=== PATIENT | female | born 1985 | race Caucasian/White ===

== ENCOUNTER 2018-10-20 15:15 | Emergency (ER) | payer BC, OTHER ==
[~2018-10-20] VITALS: Ht 160 cm; Wt 100.0 kg
[~2018-10-20 15:15] MED LIST: NAPR-985 PO
[2018-10-20 15:19] VITALS: BP 114/74; PULSE 101; RESP 24; Ht 160 cm; Wt 100.0 kg
[2018-10-20] MEDS ORDERED: ACETAMINOPHEN 500 MG TAB PO STA (15:58)
--- NOTE | 2018-10-20 17:11 | ERD ---
ER Documentation Chief Complaint Chief Complaint pt reports L ankle pain HPI 32-year-old female presents ED complaining of twisted left ankle. He states that she was jumping on trampoline where she landed funny and twisted her ankle. She reports 8 out of 10 pain that is located at her ankle. She has taken 2 Advil's prior to the emergency department visit. She denies any previous injury to the foot or ankle pain she denies any radiation of the pain. She denies any past medical history. ROS All systems reviewed and are negative except as per history of present illness. Medications Home Meds Active Scripts Naproxen* (Naprosyn*) 500 Mg Tablet, 500 MG PO BID, #30 TAB Prov:SMITH FERREIRA PA-C 10/20/18 Allergies Allergies: Coded Allergies: No Known Allergy (Unverified , 10/20/18) PMhx/Soc Medical and Surgical Hx: pt denies Medical Hx, pt denies Surgical Hx Hx Alcohol Use: No Hx Substance Use: No FmHx Family History: No diabetes Physical Exam Vitals Vital Signs Date Temp Pulse Resp B/P (MAP) Pulse Ox O2 O2 Flow FiO2 Time Delivery Rate 10/20/18 98.6 101 24 114/74 100 15:19 (87) Physical Exam Const: No acute distress Head: Atraumatic Resp: Clear to auscultation bilaterally Cardio: Regular rate and rhythm, Abd: Soft, non tender, non distended. Ext: Left ankle: swollen, tenderness at the ankle joint. 2+ pulses, good sensation, ROM limmited secondary to pain Neur: Awake and alert Psych: Normal Mood and Affect Results 24 hrs Current Medications Medications Dose Sig/Mariah Start Time Status Last (Trade) Ordered Route PRN Stop Time Admin Dose Reason Admin 1,000 mg ONCE STAT 10/20/18 DC 10/20/18 Acetaminophen PO 15:58 16:04 (Tylenol 10/20/18 16:00 Tab) Procedures/MDM ED COURSE: The patient was stable throughout ED course. I kept the patient informed of laboratory and diagnostic imaging results throughout the ED course. DIAGNOSTIC IMAGING: Read by radiologist. PROCEDURE: XR Left Ankle. CLINICAL INDICATION: Ankle trauma with pain. Fall. TECHNIQUE: AP, oblique and lateral views of the left ankle were performed. 3 images COMPARISON: None. FINDINGS: Fractures: None. Joint spaces: Maintained. Lytic, blastic, or a erosive lesions: None. Bony alignment: Normal. Calcaneal spurs: None. Arterial calcifications: None. Soft tissue swelling: Lateral IMPRESSION: 1. Lateral soft tissue injury without visible fracture of the left ankle. RPTAT:AAJJ Physician Patricio Date Time Electronically viewed and signed by Physician Patricio on 10/20/2018 16:59 PROCEDURE: XR Left Foot. CLINICAL INDICATION: Fall, trauma, pain TECHNIQUE: AP, lateral and oblique views of the left foot was obtained. The images were reviewed on a PACS workstation. 3 images COMPARISON: None. FINDINGS: Fractures: None. Lytic, blastic, or a erosive lesions: None. Bony alignment: Normal. Joint spaces: Normal. Calcaneal spurs: None. Arterial calcifications: None. Soft tissue swelling: None. IMPRESSION: 1. Unremarkable left foot radiographs. RPTAT:AAJJ Physician Patricio Date Time Electronically viewed and signed by Physician Patricio on 10/20/2018 16:58 PROCEDURES: SPLINT APPLICATION: The patient was verbally consented at bedside prior to splint application. Patient was explained the risks, benefits and alternatives to this procedure. The patient was neurovascularly intact prior to and status post application of the splint. The patient tolerated the procedure well with no complications. Splint type: Posterior Tibial Extremity: LLE Indication: Ankle sprain MEDICATIONS GIVEN: Tylenol, pt refused NSAIDs , ICE pack Patient tolerated medication well with no adverse reactions. Patient reported improvement in pain. MEDICAL DECISION MAKING: Patient is a 32-year-old female presenting with left ankle sprain. Patient's extremity symptoms have stabilized while they have been evaluated in the department and are appropriate for outpatient follow up. No evidence of fractures, dislocations, compartment syndrome, neurologic injury, vascular injury, open joint, open fracture, tendon laceration, septic arthritis, osteomyelitis, DVT, foreign body, or other emergent conditions. Patient instructed to follow-up with primary care and Ortho in the next 1 to 2 days for further care management. Patient told to be nonweightbearing until cleared by primary care or Ortho. Vital signs were reviewed. Patient is afebrile. Patient was not hypoxic. Patient was hemodynamically stable. Patient was told to follow up with primary care for further care and management. PRESCRIPTION: naproxen DISCHARGE: At this time, patient is stable for discharge and outpatient management. I have instructed the patient to follow-up with their primary care physician in 1-2 days. I have discussed with the patient the possibility of needing to see a specialist for further workup and imaging studies if symptoms persist. I have instructed the patient to promptly return to the ER for any new or worsening symptoms including increased pain, fever, nausea, vomiting, weakness or LOC. The patient expressed understanding of and agreement with this plan. All questions were answered. Home care instructions were provided. Disclaimer: Inadvertent spelling and grammatical errors are likely due to EHR/dictation software use and do not reflect on the overall quality of patient care. Also, please note that the electronic time recorded on this note does not necessarily reflect the actual time of the patient encounter. Departure Diagnosis: Primary Impression: Ankle injury Encounter type: initial encounter Laterality: left Qualified Codes: S99.912A - Unspecified injury of left ankle, initial encounter Condition: Fair Patient Instructions: What Are Ankle Sprains?, Treating Ankle Sprains Additional Instructions: Call your primary care doctor TOMORROW for an appointment during the next 1-2 days.See the doctor sooner or return here if your condition worsens before your appointment time. SMITH FERREIRA PA-C Oct 20, 2018 17:11
== END 2018-10-20 17:40 | disposition home or self-care (01) ==
LOC: FTE 15:15
DX: S93.402A Sprain of unspecified ligament of left ankle, initial encounter (principal); X50.1XXA Overexertion from prolonged static or awkward postures, initial encounter; Y92.9 Unspecified place or not applicable
CPT/HCPCS: 29515; 73610; 73630; Z7502; Z7610